=== PATIENT | male | born 1955 | race Caucasian/White ===

== ENCOUNTER → 2016-12-22 | Outpatient (CLI) | payer BC ==
[~2016-12-22] MED LIST: CALC500C70 PO; FLM4 PO; MISCCAP80; OMEG10007 PO
--- NOTE | 2016-12-22 21:19 | DIAGNOSTIC IMAGING REPORT ---
MRI OF THE LUMBAR SPINE WITHOUT CONTRAST CLINICAL HISTORY: Low back pain with worsening right leg weakness. Previous back surgeries. COMPARISON STUDY: No previous studies for comparison. TECHNIQUE: Utilizing a 1.5 Loretta magnet and dedicated coil, multiplanar, multiecho imaging of the lumbar spine was performed without IV contrast. FINDINGS: For purposes of numbering on this exam, the L5-S1 disc space is assigned to axial image 23 of 25. Alignment of the lumbar spine is anatomic. Vertebral body heights are maintained. There is no marrow replacement. There are several Schmorl's nodes. There is no intracanalicular mass or fluid collection. Conus terminates at the lower L1 level. A right hemilaminectomy is noted at the L4-L5 level. L1-2: There is disc space narrowing with disc bulge. The central canal and neural foramen are patent. L2-3: There is disc space narrowing. There is mild disc bulge. The central canal and neural foramen are patent. L3-4: There is disc bulge with ligamentous hypertrophy and facet arthrosis. The central canal and neural foramen are patent L4-5: There is disc space narrowing with disc bulge and a superimposed small central disc protrusion. Postsurgical findings are noted. There is mild narrowing of the central canal and mild narrowing of both neural foramen. L5-S1: There is disc space narrowing. Minimal disc bulge is present. There is facet arthrosis. The central canal is patent. There is mild narrowing of both neural foramen. IMPRESSION: 1. 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 2. No compression fracture. 3. Findings consistent with a right hemilaminectomy at the L4-L5 level. Electronically signed by: Ken Smith M.D. 12/22/2016 9:18 PM Dictated Date/Time: 12/22/2016 9:11 PM
== END | disposition home or self-care (01) ==
LOC: C.MRI 18:59
PROVIDERS: ATTEND Nurse Practitioner Family
DX: Z98.890 Other specified postprocedural states (principal); M62.81 Muscle weakness (generalized); M79.651 Pain in right thigh; R20.2 Paresthesia of skin; M62.838 Other muscle spasm; R10.31 Right lower quadrant pain; M54.5 Low back pain; M62.830 Muscle spasm of back; M21.371 Foot drop, right foot

== ENCOUNTER → 2018-01-22 | Outpatient (CLI) | payer BC ==
--- NOTE | 2018-01-22 14:59 | DIAGNOSTIC IMAGING REPORT ---
LEFT FOOT 3 VIEWS HISTORY: L FOOT PAIN COMPARISON: None. FINDINGS: There is no fracture or dislocation. Soft tissue and bony bunion at the head of the first metatarsal. 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 No radiopaque foreign bodies. IMPRESSION: 1. No fracture or dislocation within the left foot. 2. Soft tissue and bony bunion. 3. 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 Electronically signed by: Bora Andre M.D. 01/22/2018 2:57 PM Dictated Date/Time: 01/22/2018 2:54 PM
== END | disposition home or self-care (01) ==
LOC: C.RAD1850 14:46
PROVIDERS: ATTEND Family Medicine
DX: M79.673 Pain in unspecified foot (principal)